=== PATIENT | male | born 1965 ===

== ENCOUNTER 2024-08-02 11:56 | Day surgery (SDC) | payer OTHER ==
[~2024-08-02 11:56] MED LIST: IRBESARTAN-HCT1 EAC1 PO
[2024-08-02] MEDS ORDERED: KETO10TA2 PO (12:06)
[2024-08-02] MEDS ORDERED: MIRALAX17 GM PO (12:06)
[2024-08-02] MEDS ORDERED: TYLENOL ARTHRI650 MG PO (12:06)
[2024-08-02] MEDS ORDERED: TRAMADOL HCL50 MG PO (12:06)
[2024-08-02] MEDS ORDERED: KETOROLAC TROMETHAMINE 30 MG VIAL IV ONE (16:00)
[2024-08-02] MEDS ORDERED: CEFAZOLIN SODIUM 1,000 MG VIAL IV ONE (16:00)
[2024-08-02] MEDS ORDERED: BUPIVACAINE HCL 30 ML VIAL IJ ONE (16:00)
[2024-08-02] MEDS ORDERED: MORPHINE SULFATE 4 MG/ML VIAL IV ONE (17:15)
== END 2024-08-02 19:25 | disposition home or self-care (01) ==
LOC: CIR.AMB 11:56
PROVIDERS: ATTEND Surgery
DX: K40.90 Unilateral inguinal hernia, without obstruction or gangrene, not specified as recurrent (principal); I10 Essential (primary) hypertension; G43.909 Migraine, unspecified, not intractable, without status migrainosus; F41.9 Anxiety disorder, unspecified
CPT/HCPCS: 49650; 49591; C1781